=== PATIENT | female | born 1960 | race Caucasian/White ===

== ENCOUNTER 2017-11-06 13:41 | Emergency (ER) | payer OTHER ==
[~2017-11-06] VITALS: Ht 170.2 cm; Wt 74.0 kg
[2017-11-06 13:52] VITALS: BP 141/76; PULSE 106; RESP 16; TEMP 97.3; O2SAT 97
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
[2017-11-06] MEDS ORDERED: ROBA500T PO (15:23)
== END 2017-11-06 15:49 | disposition home or self-care (01) ==
LOC: PHEFT 13:41
DX: S13.4XXA Sprain of ligaments of cervical spine, initial encounter (principal); M54.5 Low back pain; S20.219A Contusion of unspecified front wall of thorax, initial encounter; S40.012A Contusion of left shoulder, initial encounter; V43.52XA Car driver injured in collision with other type car in traffic accident, initial encounter; J45.909 Unspecified asthma, uncomplicated; Z72.0 Tobacco use
CPT/HCPCS: 71046; 72050; 72110; 73030; 99284